=== PATIENT | female | born 1970 | race Caucasian/White ===

== ENCOUNTER 2024-06-10 18:15 | Emergency (ER) | payer SELFPAY ==
[2024-06-10] MEDS: Proparacaine 0.5% Ophth Soln 15 ML Bottle EYERT ONE (18:58)
[2024-06-10] MEDS: Fluorescein 1 MG Ophth Strip EYERT ONE (18:58)
[2024-06-10] MEDS: Gentamicin 0.3% Ophth Soln 5 ML Bottle EYERT ONE (18:59)
== END 2024-06-10 18:45 | disposition home or self-care (01) ==
LOC: DL.ED 18:15
DX: S05.01XA Injury of conjunctiva and corneal abrasion without foreign body, right eye, initial encounter (principal)
CPT/HCPCS: 99283; A9270; J3490